=== PATIENT | female | born 1965 | race Caucasian/White ===

== ENCOUNTER 2021-08-21 12:36 | Emergency (ER) | payer SELFPAY ==
[2021-08-21 12:49] VITALS: BP 156/85; PULSE 81
[2021-08-21] MEDS ORDERED: Diphtheria,Pertussis(Acell),Tetanus Vaccine 0.5 ML Syringe IM ONE (12:55)
[2021-08-21] MEDS ORDERED: Lidocaine 1% with EPINEPHrine 1:100,000 50 ML MDV INFILT ONE (13:23)
--- NOTE | 2021-08-21 13:26 | EDM.PDOC ---
ED HPI GENERAL MEDICAL PROBLEM - General Chief Complaint: Laceration Stated Complaint: L ARM CUT Time Seen by Provider: 08/21/21 13:00 Source of Information: Reports: Patient History Limitations: Reports: No Limitations - History of Present Illness INITIAL COMMENTS - FREE TEXT/NARRATIVE: 55-year-old female with an injury to her left arm. Within the last 1 to 2 hours she was working with a horse on a horse trailer, when somehow the horse got spooked and pushed itself out of the trailer knocking her down and then stepping on her left arm with a hoof. She has pain in the left forearm with a ragged fairly deep laceration on the extensor surface, and a shallow small abrasion on the left elbow. She has no bony tenderness of the shoulder or elbow, she does have pain with movement of the wrist however. No distal paresthesias. She does need a tetanus booster. 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: Neurological History: Reports: Concussion Other Oncologic History: melanoma Dermatologic History: Reports: Melanoma Other Dermatologic History: left shoulder melanoma Social & Family History - Tobacco Use Tobacco Use Status *Q: Never Tobacco User - Caffeine Use Caffeine Use: Reports: Soda, Tea - Recreational Drug Use Recreational Drug Use: No ED ROS GENERAL - Review of Systems Review Of Systems: See Below Constitutional: Denies: Fever, Chills, Malaise HEENT: Reports: No Symptoms Respiratory: Reports: No Symptoms Cardiovascular: Reports: No Symptoms GI/Abdominal: Reports: No Symptoms : Reports: No Symptoms Musculoskeletal: Reports: Other (Left forearm and wrist pain) Skin: Reports: Other (See HPI) Neurological: Denies: Paresthesia (No distal numbness) Psychiatric: Reports: No Symptoms ED EXAM, SKIN/RASH Exam: See Below Exam Limited By: No Limitations General Appearance: Alert, No Apparent Distress, Anxious Eye Exam: Bilateral Eye: Normal Inspection Head: Atraumatic Neck: Supple Respiratory/Chest: Lungs Clear GI/Abdominal: Soft, Non-Tender Extremities: Normal Capillary Refill (Distal CMS is intact from the laceration, full range of motion of the wrist and normal sensation of the hand), Other (Exam is otherwise limited to the left arm. She has no pain to palpation over the collarbone, shoulder or elbow. There is a superficial abrasion on the elbow. On the forearm proximal to the wrist on the extensor surface, there is a fairly deep and irregular laceration into the subcutaneous tissue ) Neurological: Alert, Oriented Skin: Other (4.5 cm irregular laceration into the subcutaneous tissue on the left extensor surface of the forearm) Course - Vital Signs Last Recorded V/S: Last Vital Signs Temp 95.7 F L 08/21/21 12:48 Pulse 81 08/21/21 12:48 Resp 20 08/21/21 12:48 BP 156/85 H 08/21/21 12:48 Pulse Ox 96 08/21/21 12:48 - Orders/Labs/Meds Orders: Active Orders 24 hr Category Date Time Status Forearm 2V Lt [CR] Stat Exams 08/21/21 12:55 Taken Meds: Medications Discontinued Medications Generic Name Dose Route Start Last Admin Trade Name Harrison PRN Reason Stop Dose Admin Bacitracin 1 dose 08/21/21 13:57 08/21/21 14:04 Bacitracin Oint 1 Gm U/D Packet TOP 08/21/21 13:58 1 dose ONETIME ONE Administration Diphtheria/Tetanus/Acell Pertussis 0.5 ml 08/21/21 12:55 08/21/21 13:06 Diphtheria,Pertussis(Acell),Tetanus Vaccine 0.5 Ml Syringe IM 08/21/21 12:56 0.5 ml .ONCE ONE Administration Lidocaine/Epinephrine 30 ml 08/21/21 13:23 08/21/21 13:27 Lidocaine 1% With Epinephrine 1:100,000 50 Ml Mdv INFILT 08/21/21 13:24 30 ml ONETIME ONE Administration - Re-Assessments/Exams Free Text/Narrative Re-Assessment/Exam: 08/21/21 14:23 The wound was anesthetized with 1% lidocaine with epinephrine, washed thoroughly with saline after anesthesia, and then closed with three 5-0 Vicryl suture subcutaneously, and six 4-0 Ethilon sutures to close the external wound. Topical bacitracin and a dressing was applied, these can be removed in 8 days. She was placed on cephalexin 500 mg 3 times a day, encouraged to increase activity as tolerated and recheck sooner if concerns of infection or not healing satisfactorily. Departure - Departure Time of Disposition: 14:21 Disposition: Home, Self-Care 01 Clinical Impression: Laceration of left forearm without foreign body Qualifiers: Encounter type: initial encounter Qualified Code(s): S51.812A - Laceration without foreign body of left forearm, initial encounter Abrasion of left elbow Qualifiers: Encounter type: initial encounter Qualified Code(s): S50.312A - Abrasion of left elbow, initial encounter - Discharge Information Instructions: Laceration Care, Adult Referrals: PCP,None [Primary Care Provider] - Forms: ED Department Discharge Care Plan Goals: Keep wound covered and clean while healing, sutures can be removed in 8 or 9 days. Take antibiotic until gone, 3 times a day. Activity as tolerated, and return anytime if concerns of infection or not healing satisfactorily. Sepsis Event Note (ED) - Evaluation Sepsis Screening Result: No Definite Risk - Focused Exam Vital Signs: Vital Signs Temp Pulse Resp BP Pulse Ox 08/21/21 12:48 95.7 F L 81 20 156/85 H 96 - My Orders Last 24 Hours: My Active Orders 08/21/21 12:55 Forearm 2V Lt [CR] Stat - Assessment/Plan Last 24 Hours: My Active Orders 08/21/21 12:55 Forearm 2V Lt [CR] Stat
[2021-08-21] MEDS ORDERED: Bacitracin Oint 1 GM U/D Packet TOP ONE (13:57)
--- NOTE | 2021-08-21 14:30 | CR ---
Forearm 2V Lt CLINICAL HISTORY: Trauma FINDINGS: There is no acute fracture within the forearm. There is soft tissue laceration in the distal radial aspect. IMPRESSION: Negative left forearm.
== END 2021-08-21 14:22 | disposition home or self-care (01) ==
LOC: JP.ED 12:36
DX: S51.812A Laceration without foreign body of left forearm, initial encounter (principal); S50.312A Abrasion of left elbow, initial encounter; Z23 Encounter for immunization; W55.19XA Other contact with horse, initial encounter
CPT/HCPCS: 12042; 73090-26-LT; 73090-LT; 90471; 90715; 99283-25

== ENCOUNTER 2021-10-01 14:18 | Emergency (ER) | payer SELFPAY ==
--- NOTE | 2021-10-01 15:07 | EDM.PDOC ---
ED HPI GENERAL MEDICAL PROBLEM - General Chief Complaint: Respiratory Problem Stated Complaint: COVID POSS./DIFF.BREATHING/VOMITTING Time Seen by Provider: 10/01/21 14:50 Source of Information: Reports: Patient, RN History Limitations: Reports: No Limitations - History of Present Illness INITIAL COMMENTS - FREE TEXT/NARRATIVE: 55 yo female here with Covid sx's and a positive Covid test she acquired at [facility]. Has malaise and a dry cough. Feels just like she felt about a year ago when she got Covid. Onset: Gradual Duration: Day(s):, Getting Worse Location: Reports: Chest Quality: Reports: Other (no pain) Severity: Mild Improves with: Reports: Rest Worsens with: Reports: Movement (exertion) Context: Reports: Other (See HPI) Associated Symptoms: Reports: Cough, Malaise. 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: Other (see below) (none) - Related Data Allergies Allergy/AdvReac Type Severity Reaction Status Date / Time No Known Allergies Allergy Verified 10/01/21 14:41 Home Meds: Home Meds Metoprolol Succinate 100 mg PO DAILY #30 tab.er.24h 10/01/21 [Rx] Past Medical History Respiratory History: Reports: Bronchitis, Recurrent LOGISTICS SUPPORT History: Reports: Neurological History: Reports: Concussion Endocrine/Metabolic History: Reports: Obesity/BMI 30+ Other Oncologic History: melanoma Dermatologic History: Reports: Melanoma Other Dermatologic History: left shoulder melanoma - Infectious Disease History Infectious Disease History: Reports: Chicken Pox Social & Family History - Tobacco Use Tobacco Use Status *Q: Never Tobacco User - Caffeine Use Caffeine Use: Reports: Soda, Tea - Recreational Drug Use Recreational Drug Use: No ED ROS GENERAL - Review of Systems Review Of Systems: See Below Constitutional: Reports: Malaise. Denies: Fever HEENT: Reports: No Symptoms Respiratory: Reports: Cough. Denies: Shortness of Breath, Wheezing, Sputum Cardiovascular: Reports: No Symptoms GI/Abdominal: Reports: No Symptoms : Reports: No Symptoms Musculoskeletal: Reports: No Symptoms Skin: Reports: No Symptoms Neurological: Reports: No Symptoms ED EXAM, GENERAL - Physical Exam Exam: See Below Exam Limited By: No Limitations General Appearance: Alert, WD/WN, No Apparent Distress, Obese Eye Exam: Bilateral Eye: Normal Inspection Ears: Normal External Exam, Normal Canal, Hearing Grossly Normal Ear Exam: Bilateral Ear: Auricle Normal, Canal Normal Nose: Normal Inspection, No Blood Throat/Mouth: Normal Inspection, Normal Lips, Normal Oropharynx, Normal Voice, No Airway Compromise Head: Atraumatic, Normocephalic Neck: Normal Inspection Respiratory/Chest: No Respiratory Distress, No Accessory Muscle Use, Crackles (very few) Cardiovascular: Regular Rate, Rhythm, No Edema Extremities: Normal Inspection Neurological: Alert, Oriented, CN II-XII Intact, Normal Cognition, No Motor/Sensory Deficits Psychiatric: Normal Affect, Normal Mood Skin Exam: Warm, Dry, Intact, Normal Color, No Rash #1 Interpretation EKG Date: 10/01/21 Time: 15:55 Rhythm: A-Fib Rate (Beats/Min): 156 [place]: Normal P-Wave: Present QRS: Normal ST-T: Normal QT: Normal Comparison: NA - No Prior EKG Course - Vital Signs Last Recorded V/S: Last Vital Signs Temp 36.6 C 10/01/21 16:55 Pulse 87 10/01/21 17:16 Resp 24 H 10/01/21 17:16 BP 103/60 10/01/21 17:16 Pulse Ox 94 L 10/01/21 17:16 - Orders/Labs/Meds Orders: Active Orders 24 hr Category Date Time Status Cardiac Monitoring [RC] .As Directed Care 10/01/21 15:53 Active Acetaminophen [TylenoL] Med 10/01/21 16:00 Active 650 mg PO ONETIME PRN EPINEPHrine [Adrenalin] Med 10/01/21 16:00 Active 0.3 mg IM ONETIME PRN Famotidine [Pepcid] Med 10/01/21 16:00 Active 20 mg IV ONETIME PRN diphenhydrAMINE [Benadryl] Med 10/01/21 16:00 Active 50 mg IVPUSH ONETIME PRN methylPREDNISolone Sod Succ [Solu-MEDROL] Med 10/01/21 16:00 Active 125 mg IVPUSH ONETIME PRN Medication Orders Acetaminophen (Acetaminophen 325 Mg Tab) 650 mg PO ONETIME PRN PRN Reason: HEADACHE,CHILLS Stop: 10/01/21 21:00 Diphenhydramine HCl (Diphenhydramine 50 Mg/Ml Sdv) 50 mg IVPUSH ONETIME PRN PRN Reason: ALLERGIC RXN Stop: 10/01/21 21:00 Epinephrine HCl (Epinephrine 1 Mg/Ml Sdv) 0.3 mg IM ONETIME PRN PRN Reason: ALLERGIC RXN Stop: 10/01/21 21:00 Famotidine (Famotidine 20 Mg/2 Ml Sdv) 20 mg IV ONETIME PRN PRN Reason: ALLERGIC RXN Stop: 10/01/21 21:00 Methylprednisolone Sodium Succinate (Methylprednisolone Sodium Succinate 125 Mg/2 Ml Sdv) 125 mg IVPUSH ONETIME PRN PRN Reason: ALLERGIC RXN Stop: 10/01/21 21:00 Labs: Laboratory Tests 10/01/21 Range/Units 14:50 SARS CoV-2 RNA Rapid MARGARITA Positive H Meds: Medications Generic Name Dose Route Start Last Admin Trade Name Freq PRN Reason Stop Dose Admin Acetaminophen 650 mg 10/01/21 16:00 Acetaminophen 325 Mg Tab PO 10/01/21 21:00 ONETIME PRN HEADACHE,CHILLS Diphenhydramine HCl 50 mg 10/01/21 16:00 Diphenhydramine 50 Mg/Ml Sdv IVPUSH 10/01/21 21:00 ONETIME PRN ALLERGIC RXN Epinephrine HCl 0.3 mg 10/01/21 16:00 Epinephrine 1 Mg/Ml Sdv IM 10/01/21 21:00 ONETIME PRN ALLERGIC RXN Famotidine 20 mg 10/01/21 16:00 Famotidine 20 Mg/2 Ml Sdv IV 10/01/21 21:00 ONETIME PRN ALLERGIC RXN Methylprednisolone Sodium Succinate 125 mg 10/01/21 16:00 Methylprednisolone Sodium Succinate 125 Mg/2 Ml Sdv IVPUSH 10/01/21 21:00 ONETIME PRN ALLERGIC RXN Discontinued Medications Generic Name Dose Route Start Last Admin Trade Name Freq PRN Reason Stop Dose Admin Aspirin 81 mg 10/01/21 16:31 10/01/21 16:35 Aspirin 81 Mg Tab.Chew PO 10/01/21 16:32 81 mg ONETIME ONE Administration Diltiazem HCl 25 mg 10/01/21 16:07 Diltiazem 25 Mg/5 Ml Sdv IVPUSH 10/01/21 16:08 ONETIME ONE Bamlanivimab 700 mg/ 160 mls @ 310 mls/hr 10/01/21 16:00 10/01/21 16:24 Etesevimab 1,400 mg/ Sodium IV 10/01/21 16:30 310 mls/hr Chloride ONETIME ONE Administration Metoprolol Tartrate 5 mg 10/01/21 15:56 10/01/21 16:05 Metoprolol Tartrate 5 Mg/5 Ml Sdv IVPUSH 10/01/21 15:57 5 mg ONETIME ONE Administration Metoprolol Tartrate 50 mg 10/01/21 16:13 10/01/21 16:20 Metoprolol Tartrate 50 Mg Tab PO 10/01/21 16:14 50 mg ONETIME ONE Administration - Re-Assessments/Exams Free Text/Narrative Re-Assessment/Exam: 10/01/21 15:23 Meets requirement for BAM therapy as sx's began 6 d ago, positive test today, and BMI of 48.4, & does not require oxygen currently. Patient consents to use under emergency use authorization. Free Text/Narrative Re-Assessment/Exam: 10/01/21 16:02 While waiting for her BAM infusion went into afib with RVR. Will try IV metoprolol. Free Text/Narrative Re-Assessment/Exam: 10/01/21 16:23 Converted to NSR after 5 mg IV of metoprolol. Was minimally aware of being in afib here in the ER. Departure - Departure Time of Disposition: 17:35 Disposition: Home, Self-Care 01 Condition: Fair Clinical Impression: COVID-19, Paroxysmal atrial fibrillation with rapid ventricular response - Discharge Information *PRESCRIPTION DRUG MONITORING PROGRAM REVIEWED*: Not Applicable *COPY OF PRESCRIPTION DRUG MONITORING REPORT IN PATIENT CRISTINA: Not Applicable Instructions: COVID-19 Frequently Asked Questions, Symptoms of COVID-19 - CDC (01/23/2021) Referrals: PCP,None [Primary Care Provider] - Forms: ED Department Discharge Additional Instructions: Consider supplementing with zinc if you are not already 25-50 mg daily. Supplement with at least 2000, up to 5000 Units per day of vitamin D. Take acetaminophen for pain or fever control. Isolate yourself for the next week to reduce your risk of spread. Recheck if worse. Starting tomorrow AM take metoprolol succinate 100 mg every AM to keep your heart from racing when you go into atrial fibrillation. Rx to [facility]. Take a baby aspirin every day with a meal starting tomorrow. Follow up with your provider soon regarding your newly diagnosed Covid and atrial fibrillation issues. Return for rapid heart rate over 100 that doesn't slow OR shortness of breath. Sepsis Event Note (ED) - Evaluation Sepsis Screening Result: No Definite Risk - Focused Exam Vital Signs: Vital Signs Temp Pulse Pulse Resp BP BP Pulse Ox 10/01/21 17:16 87 24 H 103/60 94 L 10/01/21 16:55 36.6 C 97 27 H 108/64 95 10/01/21 16:40 89 26 H 114/69 96 10/01/21 16:22 36.6 C 87 28 H 106/69 96 10/01/21 16:20 89 117/73 10/01/21 16:11 112 H 23 H 117/73 94 L 10/01/21 16:05 156 H 124/75 10/01/21 16:00 172 H 21 H 124/75 94 L 10/01/21 15:49 36.2 C 130 H 23 H 118/72 94 L 10/01/21 15:48 72 22 H 95/64 94 L 10/01/21 14:46 36.1 C 59 L 16 109/76 95 10/01/21 14:38 36.1 C 59 L 16 109/76 95 - My Orders Last 24 Hours: My Active Orders 10/01/21 15:53 Cardiac Monitoring [RC] .As Directed 10/01/21 16:00 Acetaminophen [TylenoL] 650 mg PO ONETIME PRN EPINEPHrine [Adrenalin] 0.3 mg IM ONETIME PRN Famotidine [Pepcid] 20 mg IV ONETIME PRN diphenhydrAMINE [Benadryl] 50 mg IVPUSH ONETIME PRN methylPREDNISolone Sod Succ [Solu-MEDROL] 125 mg IVPUSH ONETIME PRN - Assessment/Plan Last 24 Hours: My Active Orders 10/01/21 15:53 Cardiac Monitoring [RC] .As Directed 10/01/21 16:00 Acetaminophen [TylenoL] 650 mg PO ONETIME PRN EPINEPHrine [Adrenalin] 0.3 mg IM ONETIME PRN Famotidine [Pepcid] 20 mg IV ONETIME PRN diphenhydrAMINE [Benadryl] 50 mg IVPUSH ONETIME PRN methylPREDNISolone Sod Succ [Solu-MEDROL] 125 mg IVPUSH ONETIME PRN
[2021-10-01] MEDS ORDERED: EPINEPHrine 1 MG/ML SDV IM PRN (16:00)
[2021-10-01] MEDS ORDERED: Acetaminophen 325 MG Tab PO PRN (16:00)
[2021-10-01] MEDS ORDERED: Famotidine 20 MG/2 ML SDV IV PRN (16:00)
[2021-10-01] MEDS ORDERED: methylPREDNISolone Sodium Succinate 125 MG/2 ML SDV IVPUSH PRN (16:00)
[2021-10-01] MEDS ORDERED: diphenhydrAMINE 50 MG/ML SDV IVPUSH PRN (16:00)
[2021-10-01] MEDS: Metoprolol Tartrate 5 MG/5 ML SDV IVPUSH ONE (16:05)
[2021-10-01] MEDS ORDERED: Diltiazem 25 MG/5 ML SDV IVPUSH ONE (16:07)
[2021-10-01] MEDS: Metoprolol Tartrate 50 MG Tab PO ONE (16:20)
[2021-10-01] MEDS: Bamlanivimab 700 MG, ETESEVIMAB 1,400 MG in Sodium Chloride 0.9% 100 ML IV ONE (16:24)
[2021-10-01] MEDS: Aspirin 81 MG Tab.Chew PO ONE (16:35)
[2021-10-01 17:35] VITALS: BP 113/69; PULSE 86
== END 2021-10-01 17:51 | disposition home or self-care (01) ==
LOC: JP.ED 14:18
DX: U07.1 COVID-19 (principal); I48.0 Paroxysmal atrial fibrillation; E66.9 Obesity, unspecified; Z68.42 Body mass index [BMI] 45.0-49.9, adult
CPT/HCPCS: 87635; 96374; 99284; A9270; J3490; M0245; Q0245; U0002